=== PATIENT | male | born 1965 | race Caucasian/White ===

== ENCOUNTER 2017-01-24 07:08 | Day surgery (SDC) | payer OTHER ==
--- NOTE | 2017-01-08 16:22 | DIAGNOSTIC IMAGING REPORT ---
CHEST 2 VIEWS ROUTINE HISTORY: 51 years-old Male N40.1 BPH with obstruction/lower urinary tract [id number] no acute chest complaints reported. COMPARISON: None available TECHNIQUE: Frontal and lateral views of the chest FINDINGS: Cardiomediastinal and hilar silhouettes are within normal limits. There is no pneumothorax, pleural effusion or focal airspace consolidation. No overt pulmonary edema. Bones are grossly intact. IMPRESSION: No acute cardiopulmonary process. The above report was generated using voice recognition software. It may contain grammatical, syntax or spelling errors. Electronically signed by: Vasquez Gaxiola M.D. 01/08/2017 4:21 PM Dictated Date/Time: 01/08/2017 4:20 PM
[2017-01-08 16:28] LABS: BASO % 0.6 %; BASO ABS # 0.05 K/uL (0-0.2); COMPLETE YES; EOS % 1.9 %; HEMATOCRIT 45.2 % (42-52); IG% 0.6 %; LYMPH ABS # 1.82 K/uL (1.2-3.4); MEAN CELL VOLUME 97.4 fL (80-100); MEAN CORPUSCULAR HEMOGLOBIN 33.8 pg (25-34); MEAN CORPUSCULAR HGB CONC 34.7 g/dl (32-36); MEAN PLATELET VOLUME 9.7 fL (7.4-10.4); MONO % 8.8 %; NEUT % 66.1 %; PLATELET COUNT 361 K/uL (130-400); RED BLOOD COUNT 4.64 M/uL (4.7-6.1); WHITE BLOOD COUNT 8.26 K/uL (4.8-10.8)
[2017-01-10 14:57] VITALS: BMI 26.0
[~2017-01-24] VITALS: Ht 175.3 cm; Wt 81.8 kg
[~2017-01-24 07:08] MED LIST: ALLO100T PO; AMLO-110 PO; CIPROFLOXACIN / D5W 400 MG IV SCH; GABA-112 PO; LACTATED RINGER'S 1000ML 1,000 ML IV SCH; LISI-725 PO; SILD1TAB39 PO; TAMS0.4C38 PO; TRAZ50TA35 PO
--- NOTE | 2017-01-24 07:53 | History & Physical Bridge Note ---
H&P Re-Evaluation Bridge Note: I have examined the patient, reviewed the History & Physical and in the interval since the performance of the History & Physical I have noted the following changes of clinical significance: Cysto, Urolift
[2017-01-24 07:57] VITALS: BP 140/98; PULSE 79; TEMP 36.8; O2SAT 98; Ht 175.3 cm; Wt 81.8 kg
[2017-01-24] MEDS ORDERED: MIDAZOLAM HCL 1 MG/ML 2ML VIAL ONE (10:19)
[2017-01-24] MEDS ORDERED: PROPOFOL IV EMULSION 10 MG/ML 20 ML VIAL IV ONE ×3 (10:20→11:02)
[2017-01-24] MEDS ORDERED: ONDANSETRON INJ 2 MG/ML 2 ML VIAL ONE (10:20)
[2017-01-24] MEDS ORDERED: FENTANYL CITRATE INJ 50 MCG/1 ML 2 ML VIAL ONE (10:20)
[2017-01-24] MEDS ORDERED: LIDOCAINE HCL 2% 2 ML VIAL (20MG/ML) ONE (10:20)
--- NOTE | 2017-01-24 10:28 | Discharge Instructions ---
Discharge Instructions Date of Service Jan 24, 2017. Admission Reason for Admission: Benign Prostatic Hyperplasia;N40.1 Discharge Discharge Diagnosis / Problem: BPH s/p cystoscopy, Urolift Discharge Goals Goal(s): Improve function, Improve disease control, Therapeutic intervention Activity Recommendations Activity Limitations: as noted below Lifting Limitations: no more than 25 pounds, gradually increase as tolerated Exercise/Sports Limitations: rest today, gradually increase as tolerated May Resume Sexual Activity: after follow-up appointment Shower/Bathe: no limitations Driving or Machine Use: resume 1 day after discharge . Instructions / Follow-Up Instructions / Follow-Up In office as scheduled for check of his voiding Discharge Diet Recommended Diet: Regular Diet Procedures Procedures Performed: Cystoscopy, Urolift Pending Studies Studies pending at discharge: no Medical Emergencies . Who to Call and When: Medical Emergencies: If at any time you feel your situation is an emergency, please call 911 immediately. . Non-Emergent Contact Non-Emergency issues call your: Urologist Call Non-Emergent contact if: you have a fever, temperature is above 101, your pain is not controlled, your pain is worsening, your pain is unusual for you, your pain is concerning you, you have any medication questions . . "Provider Documentation" section prepared by Greg Mueller. . VTE Core Measure Inpt VTE Proph given/why not?: SCD's [place] Drug Monitoring Program Search Results: patient reviewed within database, no issues identified
[2017-01-24] MEDS ORDERED: EpHEDrine SULFATE INJ 50 MG/ML AMP IV PRN (10:45)
[2017-01-24] MEDS ORDERED: ATROPINE SULFATE 0.1 MG/ML 5ML SYR IV PRN (10:45)
[2017-01-24] MEDS ORDERED: LABETALOL HCL IV 5 MG/ML 20ML IV PRN (10:45)
[2017-01-24] MEDS ORDERED: ONDANSETRON INJ 2 MG/ML 2 ML VIAL IV PRN (10:45)
[2017-01-24] MEDS ORDERED: HYDROmorphone INJ 1 MG/ML SYR IV PRN (10:45)
[2017-01-24] MEDS ORDERED: MEPERIDINE HCL 25 MG/ML CARP IV PRN (10:45)
[2017-01-24] MEDS ORDERED: CIPR-255 PO (11:08)
[2017-01-24] MEDS ORDERED: OXYC7.5T65 PO (11:08)
[2017-01-24] MEDS ORDERED: PHEN-775 PO (11:08)
--- NOTE | 2017-01-24 11:11 | [facility] Post Operative Brief Note ---
Immediate Operative Summary Operative Date Jan 24, 2017. Pre-Operative Diagnosis BPH with obstruction/lower urinary tract symptoms Post-Operative Diagnosis Same as preop Procedure(s) Performed Cystoscopy; Urolift Surgeon Dr. Cindy Mueller Consultant Intern Surgeon(s) NA Estimated Blood Loss NA Findings 6 Urolift used, 2 misfired and not deployed, base and verumontanum on left and right with good opening of an anterior channel Specimens None, as per surgeon Drains None Anesthesia MAC Complication(s) None Disposition Recovery Room / PACU
[2017-01-24] MEDS ORDERED: PHENAZOPYRIDINE HCL 200 MG TAB PO PRN (11:15)
[2017-01-24] MEDS ORDERED: OXYCODONE/ACETAMINOPHEN 5-325 TAB PO PRN (11:15)
--- NOTE | 2017-01-24 11:21 | [facility] Operative Report ---
Operative Report Operative Date Jan 24, 2017. Pre-Operative Diagnosis BPH with obstruction/lower urinary tract symptoms Post-Operative Diagnosis Same as preop Procedure(s) Performed Cystoscopy; Urolift Surgeon Dr. Cindy Mueller Finance Advisor Surgeon(s) NA Estimated Blood Loss NA Findings Open anterior channel after completion of procedure, 6 Urolift used, 2 misfires not deployed, 2 at base and verumontanum on left and right. Specimens None, as per surgeon Drains None Anesthesia MAC Complication(s) None Disposition Recovery Room / PACU Indications Patient is a 51-year-old male with a history of bothersome voiding symptoms refractory to these medications. Office cystoscopy has demonstrated an obstructive prostate at the level of the lateral lobes and he is here today for Urolift after discussion of various forms of management. Please see H&P for details. SCDs used for DVT prophylaxis and ciprofloxacin for intravenous antibiotic coverage. Description of Procedure Patient was properly identified and brought to the operative suite after identification for appropriate consent of the chart. Monitored anesthesia care with sedation was initiated and the patient was prepped and draped in the standard fashion for this procedure. Full timeout procedure was followed. Urolift 0 cystoscope was placed using a visual obturator into the bladder. Obstructive lateral lobes of the prostate were appreciated with no intravesical lesions. Urolift tacking suture was placed at the left bladder neck after rotating the deployment device within the bladder and retracting it into the prosthetic fossa approximately 2 cm from the bladder neck. Excellent tacking at this location was noted after this was complete. Device was switched out and the procedure was repeated at the right bladder neck and at the level of the verumontanum bilaterally. 2 of the sutures at the verumontanum did not deploy for a total of 6 devices used felt to be due to a relatively small prostate and over compression at first. However the final tacking suture deployed well. After this was complete a good anterior channel from the bladder neck to the verumontanum was appreciated with opening of the prostatic fossa. Anesthesia was reversed after draining the bladder and patient was transferred to the recovery room in stable condition. Follow-up care: Patient will be discharged home with a prescription for Percocet , Pyridium and ciprofloxacin after trial of void in the postoperative period. Outpatient appointment is confirmed. Patient to contact our office with any fevers, chills, nausea, vomiting or other difficulties after surgery. I attest to the content of the Intraoperative Record and any orders documented therein. Any exceptions are noted below.
[2017-01-24] MEDS: FENTANYL CITRATE INJ 50 MCG/1 ML 2 ML VIAL IV PRN ×2 (11:26→11:31)
[2017-01-24 11:55] VITALS: BP 142/95; PULSE 80; TEMP 36.5; O2SAT 93
--- NOTE | 2017-01-24 12:24 | Anesthesiology Progress Note ---
Anesthesia Post Op Note Date & Time Jan 24, 2017 at 12:24 Vital Signs Pain Intensity: 3 Vital Signs Past 12 Hours Date Time Temp Pulse Resp B/P (MAP) Pulse Ox O2 Delivery O2 Flow Rate FiO2 01/24/17 11:55 36.5 80 20 142/95 93 Room Air 01/24/17 11:45 36.2 74 16 141/98 (87) 93 Room Air 01/24/17 11:35 82 16 132/98 98 Room Air 01/24/17 11:25 73 16 143/104 93 Room Air 01/24/17 11:15 81 16 146/110 94 Room Air 01/24/17 11:08 36.5 86 16 161/103 98 Room Air 01/24/17 07:57 36.8 79 18 140/98 (112) 98 Room Air Notes Mental Status: alert / awake / arousable, participated in evaluation Pt Amnestic to Procedure: Yes Nausea / Vomiting: adequately controlled Pain: adequately controlled Airway Patency, RR, SpO2: stable & adequate BP & HR: stable & adequate Hydration State: stable & adequate Anesthetic Complications: no major complications apparent
[2017-01-24 12:25] VITALS: BP 135/90; PULSE 72; TEMP 36.3; O2SAT 95
== END 2017-01-24 12:25 | disposition home or self-care (01) ==
LOC: C.ACU 07:08
PROVIDERS: ATTEND Urology
DX: N40.1 Benign prostatic hyperplasia with lower urinary tract symptoms (principal); N13.8 Other obstructive and reflux uropathy; N52.9 Male erectile dysfunction, unspecified; I10 Essential (primary) hypertension; Z87.891 Personal history of nicotine dependence; Z79.899 Other long term (current) drug therapy